=== PATIENT | male | born 1950 | race Caucasian/White ===

== ENCOUNTER → 2016-12-16 | Outpatient (CLI) | payer MEDICARE, OTHER | LOC: GMAJ 10:41 | PROVIDERS: ATTEND Family Medicine | DX: Z12.5 Encounter for screening for malignant neoplasm of prostate (principal) ==

== ENCOUNTER → 2018-01-03 | Outpatient (CLI) | payer MEDICARE, OTHER | LOC: GMAJ 10:29 | PROVIDERS: ATTEND Family Medicine | DX: I10 Essential (primary) hypertension (principal); Z12.5 Encounter for screening for malignant neoplasm of prostate | CPT/HCPCS: 84443; G0103 ==

== ENCOUNTER → 2018-09-16 | Outpatient (CLI) | payer MEDICARE, OTHER | LOC: GMAJ 10:32 | PROVIDERS: ATTEND Family Medicine | DX: Z12.5 Encounter for screening for malignant neoplasm of prostate (principal) ==

== ENCOUNTER → 2019-04-26 | Outpatient (CLI) | payer MEDICARE, OTHER ==
--- NOTE | 2019-04-27 09:28 | US ---
EXAM DESCRIPTION: Extremity,Lower [place] Arteries: Ultrasound. CLINICAL HISTORY: PVD COMPARISON: None. TECHNIQUE: Doppler evaluation of the bilateral lower extremity arterial flow waveforms and velocities. FINDINGS: Arterial waveforms in the right lower extremity are triphasic in the right common femoral artery and biphasic inferiorly to the dorsalis pedis artery.. Arterial waveforms in the left lower extremity are similar to the waveforms in the right lower extremity.. Comments: Velocities are decreased in the left lower extremity compared to the right lower extremity. No significant echogenic plaque. 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 Electronically signed by: Karthik Branch MD 04/27/2019 9:26 AM CDT
== END ==
LOC: US 08:00
PROVIDERS: ATTEND Family Medicine
DX: I70.201 Unspecified atherosclerosis of native arteries of extremities, right leg (principal)

== ENCOUNTER → 2019-08-08 | Outpatient (CLI) | payer MEDICARE, OTHER | LOC: GMAJ 10:36 | PROVIDERS: ATTEND Family Medicine | DX: Z12.5 Encounter for screening for malignant neoplasm of prostate (principal); I10 Essential (primary) hypertension ==

== ENCOUNTER 2020-09-08 09:25 | Emergency (ER) | payer MEDICARE, OTHER ==
[2020-09-08 09:50] VITALS: TEMP 98.9
--- NOTE | 2020-09-08 10:28 | RAD ---
EXAM DESCRIPTION: Chest,1 View CLINICAL HISTORY: 70 years Male, covid COMPARISON: None TECHNIQUE: Single AP chest radiograph. FINDINGS: Query subtle peripheral bilateral groundglass pulmonary opacities versus overlapping soft tissue shadows. No pneumothorax or pleural effusion. Normal cardiomediastinal contour. Normal osseous structures. IMPRESSION: 1. Suspected peripheral bilateral groundglass pulmonary opacities, consistent with provided history. Please note that chest radiographs have low sensitivity for detection of subtle groundglass opacities. Electronically signed by: King Kirk MD 09/08/2020 10:26 AM CDT
--- NOTE | 2020-09-08 10:56 | ED.PDOC ---
History of Present Illness - General Chief Complaint: General Stated Complaint: Not eating well, fatigue, malaise Time Seen by Provider: 09/08/20 09:31 Source: patient Exam Limitations: no limitations - History of Present Illness Initial Comments: The patient is a 70-year-old male presented emergency room secondary to feeling poorly. The patient feels fatigued and has some body aches. He may have a little bit of shortness of breath but not much. He does have a mild clearing cough. No evidence of any respiratory distress. Oxygen saturations ranged from 94 to 99% on room air. No obvious increased work of breathing. He has had a headache as well as some body aches. He has had a mild runny nose. He was diagnosed with coronavirus 3 days ago. He feels very tired. He is pleasant and cooperative. Again he does not appear to be in any significant distress. Timing/Duration: other - 4 days Severity: mild Improving Factors: nothing Worsening Factors: nothing Associated Symptoms: cough, diaphoresis, headaches, malaise, shortness of breath - Mild, weakness - Generalized Allergies/Adverse Reactions: Allergies NO KNOWN ALLERGY Allergy (Verified 09/08/20 09:50) Home Medications: Ambulatory Orders Losartan Potassium [Cozaar] 50 mg PO DAILY 03/02/17 Metoprolol Tartrate [Lopressor] 50 mg PO DAILY 03/02/17 Famotidine [Pepcid Tab] 20 mg PO BID #60 tab 09/08/20 Review of Systems - Review of Systems Constitutional: States: diaphoresis - Mild, malaise, weakness - Generalized EENTM: States: nose congestion, throat pain - Mild Respiratory: States: cough - Mild, short of breath - Mild Cardiology: States: no symptoms reported Gastrointestinal/Abdominal: States: no symptoms reported, see HPI - Mild decreased appetite Genitourinary: States: no symptoms reported Musculoskeletal: States: no symptoms reported Skin: States: no symptoms reported Neurological: States: headache Endocrine: States: no symptoms reported All other Systems: No Change from Baseline Past Medical History (General) - Patient Medical History Hx Stroke: No Hx Cardiac Disorders: No Hx Congestive Heart Failure: No Hx Hypertension: Yes Hx Diabetes: No Hx Cancer: No Surgical History: other - Vaccination History Hx Influenza Vaccination: No - Social History Hx Tobacco Use: Yes Hx Alcohol Use: Yes Hx Substance Use: No Hx Substance Use Treatment: No Hx Depression: No - Female History Patient is a Female of Child Bearing Age (10 -59 yrs old): No Patient : No Family Medical History - Family History Mother Family History: No Known Physical Exam - Physical Exam General Appearance: Alert, Comfortable, No apparent distress Eye Exam: bilateral normal Ears, Nose, Throat: hearing grossly normal, normal pharynx, nasal congestion Neck: full range of motion, supple Respiratory: lungs clear, normal breath sounds, no respiratory distress, no accessory muscle use Cardiovascular/Chest: normal peripheral pulses, regular rate, rhythm, no edema Peripheral Pulses: radial,right: 2+, radial,left: 2+ Gastrointestinal/Abdominal: non tender, soft Rectal Exam: deferred Back Exam: no CVA tenderness, no vertebral tenderness Extremity: normal range of motion, non-tender, normal inspection, no pedal edema, normal capillary refill 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 The patient does have coronavirus. He is oxygenating well and vital signs are stable. Lung manning sound clear. There are mild changes on the chest x-ray consistent with a coronavirus. The patient needs to keep himself well-hydrated. He does need to get up and do mild exercise several times a day to prevent deconditioning. I am going to put the patient on Pepcid for the next couple of weeks to take twice daily, which will hopefully help his appetite. The patient can additionally take [id number] vitamin C and zinc if he wishes. Mild intermittent sunlight exposure is important. He does need to return for repeat evaluation if he is worsening significantly in any way. He does understand that the course of this can be prolonged and fluctuating. I would recommend that he follow-up with his primary care doctor at least by phone next week. Tylenol can be used for discomfort. [email or web address] [id number] - Results/Orders Results/Orders: Chest x-ray shows no peripheral groundglass opacity consistent with coronavirus Departure - Departure Clinical Impression: COVID-19 Disposition: Discharge to Home or Self Care Condition: Fair Departure Forms: ED Discharge - Pt. Copy, Patient Portal Self Enrollment Diet: regular diet Activity: increase activity as tolerated Referrals: Kristian Palma MD [Primary Care Provider] - 1-2 Weeks Prescriptions: Famotidine [Pepcid Tab] 20 mg PO BID #60 tab Home Medications: Ambulatory Orders Losartan Potassium [Cozaar] 50 mg PO DAILY 03/02/17 Metoprolol Tartrate [Lopressor] 50 mg PO DAILY 03/02/17 Famotidine [Pepcid Tab] 20 mg PO BID #60 tab 09/08/20 Additional Instructions: The patient is a 70-year-old male presented emergency room secondary to feeling poorly in general. The patient does have coronavirus. He is oxygenating well and vital signs are stable. Lung manning sound clear. There are mild changes on the chest x-ray consistent with a coronavirus. The patient needs to keep himself well-hydrated. He does need to get up and do mild exercise several times a day to prevent deconditioning. I am going to put the patient on Pepcid for the next couple of weeks to take twice daily, which will hopefully help his appetite. The patient can additionally take [id number] vitamin C and zinc if he wishes. Mild intermittent sunlight exposure is important. He does need to return for repeat evaluation if he is worsening significantly in any way. He does understand that the course of this can be prolonged and fluctuating. I would recommend that he follow-up with his primary care doctor at least by phone next week. Tylenol can be used for discomfort.
[2020-09-08 11:07] VITALS: BP 114/64; O2SAT 94
== END 2020-09-08 11:14 | disposition home or self-care (01) ==
LOC: ER 09:25
DX: U07.1 COVID-19 (principal); Z87.891 Personal history of nicotine dependence